=== PATIENT | male | born 1945 | race African-American/Black ===

== ENCOUNTER 2018-04-30 06:30 | Day surgery (SDC) | payer OTHER ==
[2018-04-27 08:22] VITALS: BMI 24.6
[2018-04-30] MEDS ORDERED: LIDOCAINE HCL 2% JELLY 10 ML CARTRIDGE ONE (07:29)
[2018-04-30] MEDS ORDERED: MIDAZOLAM HCL 2 MG/2 ML SINGLE DOSE VIAL ONE (09:16)
[2018-04-30] MEDS ORDERED: LIDOCAINE HCL/PF 2% SDV 5ML VIAL ONE (09:16)
[2018-04-30] MEDS ORDERED: PROPOFOL 20 ML ONE (09:16)
[2018-04-30] MEDS ORDERED: DESFLURANE GAS 240 ML BOTTLE IH ONE (10:59)
[2018-04-30] MEDS ORDERED: LIDOCAINE HCL 2% JELLY 10 ML CARTRIDGE TP ONE (11:08)
[2018-04-30] MEDS ORDERED: ONDANSETRON 4 MG/2 ML VIAL IVPUSH PRN (11:16)
[2018-04-30] MEDS ORDERED: oxyCODONE HCL 5 MG TABLET PO PRN (11:16)
[2018-04-30] MEDS ORDERED: ACETAMINOPHEN 500 MG TABLET (FP) PO PRN (11:16)
[2018-04-30] MEDS ORDERED: LACTATED RINGERS SOLUTION 1,000 ML IV SCH (11:30)
[2018-04-30] MEDS ORDERED: ACETAMINOPHEN INJECTION 100 ML IVPB ONE (11:50)
[2018-04-30 12:17] LABS: HEMATOCRIT 23.3 % (35.4-49); HEMOGLOBIN 7.7 GM/dL (11.7-16.9); MCH 31.5 pg (25.7-33.7); MCHC 33.1 g/dl (32.0-35.9); MEAN CELL VOLUME 95.3 fl (80-96); MEAN PLT VOLUME 8.6 fl (7.5-11.1); PLATELET COUNT 186 K/MM3 (134-434); RBC 2.45 M/mm3 (4.00-5.60); RDW 14.4 % (11.9-15.9); WHITE BLOOD COUNT 4.1 K/mm3 (4.0-10.0)
[2018-04-30 13:12] VITALS: TEMP 97.9
--- NOTE | 2018-04-30 13:17 | OP ---
Operative Note - Note: Operative Date: 04/30/18 Pre-Operative Diagnosis: bph with recurrent prostatic bleeding and obstructive symtoms Operation: transurethral resection and vaporization of the prostate Post-Operative Diagnosis: Same as Pre-op Surgeon: Dusty Dumont Anesthesia: General Estimated Blood Loss (mls): 50 Drains & Tubes with Location: 24 fr devi Operative Report Dictated: Yes
[2018-04-30 16:04] VITALS: BP 155/87; PULSE 76
--- NOTE | 2018-04-30 20:48 | OP ---
DATE OF OPERATION: 04/30/2018 PREOPERATIVE DIAGNOSIS: Benign prostatic hypertrophy with recurrent gross hematuria secondary to prostatic bleeding and ongoing obstructive symptoms. POSTOPERATIVE DIAGNOSIS: Benign prostatic hypertrophy with recurrent gross hematuria secondary to prostatic bleeding and ongoing obstructive symptoms. PROCEDURE: Transurethral resection and vaporization of the prostate utilizing the Plasmakinetic system. ATTENDING SURGEON: Lenin Dumont M.D. ANESTHESIA: General. DESCRIPTION OF PROCEDURE: Patient was brought in the operating room, placed in supine position on the operating room table. Anesthesia and preoperative antibiotics were administered. The patient was then placed in the dorsal lithotomy position and prepped and draped in the usual sterile manner. Cystoscopy was performed, and bullous edema of the prostate with friability of the tissue was noted. The tissue with the visual inspection. The bladder was also inspected and noted to have 2+ bladder trabeculation with small diverticula. No evidence of stones or neoplasm was noted. Old blood clots were noted, however. At this point, the resectoscope was placed and utilized in the loop element of the resectoscope. The prostate was resected, extending from the bladder neck to the verumontanum. A large residual median lobe was noted. All the resected prostatic chips were removed from the bladder utilizing an Ellik evacuator. At this point, vaporization of the residual tissue was performed to the level of the pseudocapsule of the prostate in a 360-degree fashion. The margins were the bladder neck proximally and the verumontanum distally. No complications were noted. The patient tolerated the procedure very well. A 24-Hungarian catheter was left in at the end of the procedure on light traction. The patient's disposition was to recovery room. LENIN AREVALO M.D. [id number]
--- NOTE | 2018-05-03 14:01 | PATH ---
Surgical Pathology Report Patient Name: JENNIFER GUNTER [facility]. Rec. #: [id number] /Age/Gender: 1945 (Age: 73) / M Account: [id number] Location: [facility] Taken: 04/30/2018 Received: 04/30/2018 Reported: 05/03/2018 Physicians: Dusty Dumont Specimen(s) Received PROSTATE CHIPS Clinical History Benign prostate hypertrophy Final Diagnosis PROSTATE TISSUE, TUR-P: BENIGN PROSTATIC TISSUE SHOWING ACINAR ATROPHY, CYSTIC CHANGES, CHRONIC INFLAMMATION AND STROMAL HYPERPLASIA. Electronically Signed Marce Norton M.D. Gross Description Received in formalin labeled "prostate tissue," is a 32 g, 12.0 x 9.5 x 0.6 cm aggregate of palacios, firm to rubbery tissue fragments, consistent with prostate tissue. Section [employer] Property [employer] portions are submitted in 13 cassettes. /05/01/2018 saudi/05/01/2018
== END 2018-04-30 15:45 | disposition home or self-care (01) ==
LOC: JASU-SURG 06:30
PROVIDERS: ATTEND Urology
PROC: 0VT08ZZ Resection of Prostate, Via Natural or Artificial Opening Endoscopic (ICD-10-PCS; principal; 2018-04-30 09:00)
DX: N40.1 Benign prostatic hyperplasia with lower urinary tract symptoms (principal); R31.0 Gross hematuria; N13.8 Other obstructive and reflux uropathy
CPT/HCPCS: 36415; 82962; 85027; 88305-TC; 94760; J0131